=== PATIENT | male | born 1985 | race Caucasian/White ===

== ENCOUNTER 2018-05-06 14:17 | Emergency (ER) | payer MEDICAID ==
--- NOTE | 2018-05-06 15:15 | EDM.PDOC ---
ED HPI GENERAL MEDICAL PROBLEM - General Chief Complaint: General Stated Complaint: LEFT WRIST PAIN Time Seen by Provider: 05/06/18 15:14 Source of Information: Reports: Patient - History of Present Illness INITIAL COMMENTS - FREE TEXT/NARRATIVE: HISTORY AND PHYSICAL: History of present illness: [Patient ran up a horse through a fence 4-5 days ago, falling to the ground he states he did lose consciousness at that time since he has had no headache dizziness nausea or vomiting, this is in the context of a rodeo participation patient also complains of "back pain", although this seems to be more pain of the musculature surrounding the right scapula consistent with the rodeo participation He complains of right shoulder pain as well as left wrist pain He also complains of dental pain and swelling along the left lower jawline No fever nausea vomiting diarrhea constipation chest pain shortness breath headache dizziness palpitation no bowel or urine symptoms no back pain ] Review of systems: As per history of present illness and below otherwise all systems reviewed and negative. Past medical history: As per history of present illness and as reviewed below otherwise noncontributory. Surgical history: As per history of present illness and as reviewed below otherwise noncontributory. Social history: No reported history of drug or alcohol abuse. Family history: As per history of present illness and as reviewed below otherwise noncontributory. Physical exam: HEENT: Atraumatic, normocephalic, pupils reactive, negative for conjunctival pallor or scleral icterus, mucous membranes moist, throat clear, neck supple, nontender, trachea midline. Lungs: Clear to auscultation, breath sounds equal bilaterally, chest nontender. Heart: S1S2, regular, negative for clicks, rubs, or JVD. Abdomen: Soft, nondistended, nontender. Negative for masses or hepatosplenomegaly. Negative for costovertebral tenderness. Pelvis: Stable nontender. Genitourinary: Deferred. Rectal: Deferred. Extremities: Atraumatic, negative for cords or calf pain. Neurovascular unremarkable. Left upper extremity shoulder elbow on affected wrist obviously swollen as well as over the dorsum of the hand no snuffbox tenderness entire limb neurovascularly intact Right upper extremity pain over distal or distal clavicle. Neuro: Awake, alert, oriented. Cranial nerves II through XII unremarkable. Cerebellum unremarkable. Motor and sensory unremarkable throughout. Exam nonfocal. Diagnostics: []Patient refused head CT Right shoulder complete Left wrist complete Therapeutics: [Splint left wrist-thumb spica Sling right upper extremity Amoxicillin Tylenol No. 3 Follow-up with sore throat Impression: [Dental abscess Possible shoulder separation on the right, low-grade Left wrist injury] Definitive disposition and diagnosis as appropriate pending reevaluation and review of above. Generalized Pain Score (Numeric/FACES): 7 - Related Data Allergies Allergy/AdvReac Type Severity Reaction Status Date / Time No Known Allergies Allergy Verified 05/06/18 14:50 Home Meds: Home Meds . [No Known Home Meds] 05/06/18 [History] Albuterol Sulfate [Proventil Hfa] ASDIRECTED 05/06/18 [History] Past Medical History - Past Health History Medical/Surgical History: Denies Medical/Surgical History Cardiovascular History: Reports: Heart Murmur Respiratory History: Reports: Asthma - Past Surgical History HEENT Surgical History: Reports: Eye Surgery Social & Family History - Family History Family Medical History: Noncontributory - Tobacco Use Smoking Status *Q: Current Every Day Smoker Years of Tobacco use: 12 Packs/Tins Daily: 0.2 - Recreational Drug Use Recreational Drug Use: No ED ROS GENERAL - Review of Systems Review Of Systems: See Below ED EXAM, GENERAL - Physical Exam Exam: See Below Course - Vital Signs Last Recorded V/S: Last Vital Signs Temp 97.6 F 05/06/18 14:45 Pulse 70 05/06/18 16:29 Resp 13 05/06/18 16:29 BP 154/85 H 05/06/18 16:29 Pulse Ox 97 05/06/18 16:29 - Orders/Labs/Meds Orders: Active Orders 24 hr Category Date Time Status Shoulder Comp Rt [CR] Stat Exams 05/06/18 14:59 Taken Wrist Comp Min 3V Lt [CR] Stat Exams 05/06/18 14:47 Taken Departure - Departure Time of Disposition: 17:03 Disposition: Home, Self-Care 01 Condition: Good Clinical Impression: Left wrist injury, Right shoulder injury, Dental abscess - Discharge Information Referrals: PCP,None [Primary Care Provider] - Forms: ED Department Discharge Additional Instructions: Thumb spica splint left upper extremity Sling for right upper extremity Medication as prescribed Follow-up with orthopedist, call for appointment and number provided below to schedule appropriate follow-up [facility] Professional [address], [address] [place] [address] my orthopedic The following information is given to patients seen in the emergency department who are being discharged to home. This information is to outline your options for follow-up care. We provide all patients seen in our emergency department with a follow-up referral. The need for follow-up, as well as the timing and circumstances, are variable depending upon the specifics of your emergency department visit. If you don't have a primary care physician on staff, we will provide you with a referral. We always advise you to contact your personal physician following an emergency department visit to inform them of the circumstance of the visit and for follow-up with them and/or the need for any referrals to a consulting specialist. The emergency department will also refer you to a specialist when appropriate. This referral assures that you have the opportunity for follow-up care with a specialist. All of these measure are taken in an effort to provide you with optimal care, which includes your follow-up. Under all circumstances we always encourage you to contact your private physician who remains a resource for coordinating your care. When calling for follow-up care, please make the office aware that this follow-up is from your recent emergency room visit. If for any reason you are refused follow-up, please contact the [facility] emergency department at and asked to speak to the emergency department charge nurse. - My Orders Last 24 Hours: My Active Orders 05/06/18 14:47 Wrist Comp Min 3V Lt [CR] Stat 05/06/18 14:59 Shoulder Comp Rt [CR] Stat - Assessment/Plan Last 24 Hours: My Active Orders 05/06/18 14:47 Wrist Comp Min 3V Lt [CR] Stat 05/06/18 14:59 Shoulder Comp Rt [CR] Stat
--- NOTE | 2018-05-06 17:02 | CR ---
EXAMINATION: Right shoulder HISTORY: Pain COMPARISON: None TECHNIQUE: 3 views FINDINGS/IMPRESSION: There is no acute osseous abnormality, dislocation, or fracture. Bone mineralization and joint spaces are preserved.
--- NOTE | 2018-05-06 17:02 | CR ---
EXAMINATION: Left wrist HISTORY: Pain COMPARISON: None TECHNIQUE: 3 views FINDINGS/IMPRESSION: There is no definite fracture or acute osseous abnormality identified. The radiocarpal alignment is preserved. Mild dorsal and lateral soft tissue swelling. Possible widening of the scapholunate interval possibly artificially increased by projection.
[2018-05-06] MEDS ORDERED: Benzocaine 20% Topical Spray UD MUCMEM ONE (17:15)
[2018-05-06] MEDS ORDERED: Lidocaine 2% Viscous Solution 15 ML Cup PO ONE (17:15)
== END 2018-05-06 17:23 | disposition home or self-care (01) ==
LOC: MW.ED 14:17
DX: S69.92XA Unspecified injury of left wrist, hand and finger(s), initial encounter (principal); S49.91XA Unspecified injury of right shoulder and upper arm, initial encounter; K04.7 Periapical abscess without sinus; F17.210 Nicotine dependence, cigarettes, uncomplicated; W19.XXXA Unspecified fall, initial encounter
CPT/HCPCS: 29125; 73030; 73110; 99283; A9270; 99282